=== PATIENT | female | born 1960 | race Two or more races ===

== ENCOUNTER 2024-04-09 13:00 | Emergency (ER) | payer MEDICAID ==
[~2024-04-09] VITALS: Ht 162.6 cm; Wt 50.0 kg
[2024-04-09 13:04] VITALS: TEMP 97.9; O2SAT 99
[2024-04-09 14:02] LABS: BASOPHILS % 0.4 % (0.0-2.0); EOSINOPHILS % 0.5 % (0.0-5.0); HEMATOCRIT. 41.7 % (36.0-48.0); HEMOGLOBIN. 13.6 g/dL (12.0-16.0); LYMPHOCYTES % 21.6 % (20.0-50.0); MEAN CORPUSCULAR HEMOGLOBIN 27.3 pg (28.0-32.0); MEAN CORPUSCULAR HGB CONC 32.6 g/dL (31.0-37.0); MEAN CORPUSCULAR VOLUME 83.7 fL (81.0-99.0); MEAN PLATELET VOLUME 8.5 fl (7.4-10.4); MONOCYTES % 5.1 % (2.0-8.0); NEUTROPHILS % 72.4 % (40.0-76.0); PLATELET 343 x1000/uL (130-400); RED BLOOD CELL COUNT 4.99 mill/uL (4.2-5.4); WHITE BLOOD COUNT 10.2 x1000/uL (4.5-11.0)
[2024-04-09 14:08] LABS: CARBON DIOXIDE 30 mEq/L (21-32); CHLORIDE 105 mEq/L (98-107); POTASSIUM 3.7 mEq/L (3.5-5.1); SODIUM 141 mEq/L (136-145)
[2024-04-09 14:14] LABS: CREATININE 0.8 mg/dL (0.6-1.0); GLUCOSE 81 mg/dL (70-105); INR 0.9; PROTHROMBIN TIME 10.3 sec (9.6-11.0); UREA NITROGEN BLOOD 9 mg/dL (9-23)
[2024-04-09 14:16] LABS: ALANINE AMINOTRANSFERASE 19 IU/L (10-49); ASPARTATE AMINOTRANSFERASE 30 IU/L (<34); BILIRUBIN TOTAL 0.7 mg/dL (0.1-1.0); PROTEIN TOTAL 7.2 g/dL (6.0-8.3)
[2024-04-09] MEDS: MORPHINE SULFATE 4 MG/ML INJ (FOR IV/IM USE) IV ONE (15:04)
[2024-04-09] MEDS: ONDANSETRON HCL 4MG/2ML INJ IV ONE (15:05)
[2024-04-09 19:04] LABS: CLARITY URINE CLEAR (CLEAR); COLOR URINE YELLOW (YELLOW); GLUCOSE URINE NEGATIVE (NEGATIVE); KETONES URINE 1+ (NEGATIVE); LEUKOCYTE ESTERASE URINE NEGATIVE (NEGATIVE); NITRITE URINE NEGATIVE (NEGATIVE); OCCULT BLOOD URINE NEGATIVE (NEGATIVE); PH URINE 6.5 (4.5-8.0); PROTEIN URINE NEGATIVE (NEGATIVE); SPECIFIC GRAVITY URINE 1.071 (1.005-1.030); UROBILINOGEN URINE 0.2 E.U./dL (0.2-1.0)
[2024-04-09 19:30] VITALS: BP 122/62; PULSE 68; RESP 14
[2024-04-09] MEDS ORDERED: IOHEXOL-300 100 ML BOTTLE ONE (23:15)
== END 2024-04-09 20:17 | disposition home or self-care (01) ==
LOC: ER 13:00
DX: R10.9 Unspecified abdominal pain (principal); R07.89 Other chest pain; R11.2 Nausea with vomiting, unspecified; E78.00 Pure hypercholesterolemia, unspecified; I10 Essential (primary) hypertension
CPT/HCPCS: 80053; 81003; 85025; 85610; 36415; 74177; 96374; 96375; 99285; Q9967; J2405; J2270; Z7610